=== PATIENT | female | born 1955 | race Caucasian/White ===

== ENCOUNTER → 2019-05-09 | Outpatient (REF) | payer BC | LOC: M SFHCPLAZ 13:06 | PROVIDERS: ATTEND Internal Medicine Infectious Disease | DX: Z22.321 Carrier or suspected carrier of Methicillin susceptible Staphylococcus aureus (principal) ==

== ENCOUNTER → 2019-06-21 | Outpatient (REF) | payer BC | LOC: M SFHCPLAZ 13:03 | PROVIDERS: ATTEND Internal Medicine Infectious Disease | DX: Z22.321 Carrier or suspected carrier of Methicillin susceptible Staphylococcus aureus (principal) ==